=== PATIENT | female | born 1980 | race Caucasian/White ===

== ENCOUNTER 2018-09-24 17:15 | Inpatient (IN) | payer OTHER ==
--- NOTE | 2018-09-24 17:27 | PDOC ---
Rapid Medical Evaluation Chief Complaint: Chest Pain Time Seen by Provider: 09/24/18 17:21 Medical Evaluation: Allergies Allergy/AdvReac Type Severity Reaction Status Date / Time kiwi Allergy Severe "THROAT Verified 04/01/13 16:42 [Kiwi (Actinidia Chinensis)] CLOSES" No Known Drug Allergies Allergy Verified 04/01/13 16:42 09/24/18 17:22 38 year old female chest pain and shortness of breath 2 weeks. + OCP use. send by PCP for evaluation. history of PE, ITP, SLE. currently on Coumadin PE; patient alert ox3 bruising to b/l loower extremities. A: Sob P: labs EKG patient to the ER for further management of care. Discharge Disposition - Diagnosis Pleuritic chest pain - Referrals - Patient Instructions - Post Discharge Activity
--- NOTE | 2018-09-24 17:39 | PDOC ---
History of Present Illness - General Chief Complaint: Shortness of Breath Stated Complaint: CHEST PAIN/SOB Time Seen by Provider: 09/24/18 17:21 - History of Present Illness Initial Comments: 09/24/18 18:45 The patient is a 38 year old female with a history of PE, ITP, Lupus on Warfarin who presents for evaluation of shortness of breath and chest pain. The patient reports a 2 week history of worsening shortness of breath. She states that today she began experiencing sharp chest pain worse with deep inspiration prompting her presentation to the ED for further evaluation. She states that she is occasionally inconsistent with taking her warfarin and reports OCP use as well. She otherwise denies fevers, chills, nausea, vomiting , abdominal pain, or changes with urination or bowel movements. Past History - Past Medical History Allergies/Adverse Reactions: Allergies Allergy/AdvReac Type Severity Reaction Status Date / Time kiwi Allergy Severe "THROAT Verified 09/24/18 17:22 [Kiwi (Actinidia Chinensis)] CLOSES" No Known Drug Allergies Allergy Verified 09/24/18 17:22 Home Medications: Ambulatory Orders Enoxaparin [Lovenox -] 40 mg SQ DAILY 09/17/12 Warfarin Na [Coumadin] 4 mg PO HS 09/18/12 Moxifloxacin HCl [Vigamox] 1 drop OD TID #1 bottle 04/01/13 Anemia: No Asthma: No Cancer: No Cardiac Disorders: No CVA: No COPD: No CHF: No Dementia: No Diabetes: No GI Disorders: No Disorders: No HTN: No Hypercholesterolemia: No Liver Disease: No Seizures: No Thyroid Disease: No Other medical history: ITP, LUPUS. PE - Surgical History Abdominal Surgery: Yes Appendectomy: No Cardiac Surgery: No Cholecystectomy: Yes Lung Surgery: No Neurologic Surgery: No Orthopedic Surgery: No - Immunization History Immunization Up to Date: Yes - Suicide/Smoking/Psychosocial Hx Smoking Status: No Smoking History: Never smoked Have you smoked in the past 12 months: No Hx Alcohol Use: No Drug/Substance Use Hx: No Substance Use Type: None Review of Systems - Review of Systems Comments:: 09/24/18 18:50 Constitutional: No fevers, chills, fatigue, malaise HEENT: No Rhinorrhea, nasal congestion, visual changes Cardiovascular: Chest pain. No syncope, palpitations, lightheadedness Respiratory: SOB. No Cough, Hemoptysis, Gastrointestinal: No Abdominal pain, Nausea, Vomiting, Constipation, Diarrhea, Melena Genitourinary: No Dysuria, Frequency, Urgency, Hesitancy, Hematuria, Flank pain Musculoskeletal: No Myalgia, arthralgia Skin: No rashes, itching, bruising, pallor Neurologic: No Headache, Dizziness, Numbness, Weakness, or Tingling Psychiatric: No Hallucinations. No SI or HI *Physical Exam - Vital Signs Last Vital Signs Temp Pulse Resp BP Pulse Ox 97.9 F 90 18 146/90 96 09/24/18 17:22 09/24/18 17:22 09/24/18 17:22 09/24/18 17:22 09/24/18 17:22 - Physical Exam Comments: 09/24/18 18:53 General Appearance: Nourished. Visibly tachypneic on exam. No Apparent Distress HEENT: No Pharyngeal Erythema, Tonsillar Exudate, Tonsillar Erythema Neck: No Cervical Lymphadenopathy Respiratory/Chest: Lungs Clear, Normal Breath Sounds. No Crackles, Rales, Rhonchi, Wheezing Cardiovascular: Regular Rhythm, Regular Rate. No Murmur, Gallops, Rubs Gastrointestinal/Abdominal: Normal Bowel Sounds, Soft. No Guarding, Rebound, Tenderness Musculoskeletal: No CVA Tenderness Extremity: 1+ pitting edema in the lower extremities bilaterally. Normal Capillary Refill Integumentary: Normal Color, Dry, Warm Neurologic: Fully Oriented, Alert, Normal Mood/Affect, Normal Response, ED Treatment Course - LABORATORY CBC & Chemistry Diagram: 09/24/18 17:30 09/24/18 17:32 Medical Decision Making - Medical Decision Making 09/24/18 18:53 The patient is a 38 year old female with a history of PE, ITP, Lupus on Warfarin who presents for evaluation of shortness of breath and chest pain. Given the patient's history and physical exam, we will obtain a cbc, cmp, coags , troponin, ekg, chest plain film, d-dimer, chest CTA to evaluate further. We will continue to monitor and reassess while here in the ED. 09/24/18 21:57 CBC, cmp, troponin are unremarkable. Coags show a subtheraputic INR. D-dimer is negative. Chest CTA demonstrates pulmonary hypertension without evidence of PE as read by our radiologist. Given the patient's new pulmonary hypertension and new ekg changes, we believe she requires observation admission for further monitoring and management. *DC/Admit/Observation/Transfer Diagnosis at time of Disposition: Pleuritic chest pain, Shortness of breath, Pulmonary hypertension, Abnormal EKG - Discharge Dispostion Condition at time of disposition: Stable Decision to Admit order: Yes - Referrals Referrals: Clinton Parks MD [Primary Care Provider] - - Patient Instructions - Post Discharge Activity
[2018-09-24 17:47] LABS: BASO % 1.2 % (0-2.0); EOS % 2.6 % (0-4.5); HEMATOCRIT 37.3 % (32.4-45.2); HEMOGLOBIN 12.6 GM/dL (10.7-15.3); LYMPH % 27.6 % (8-40); MCH 29.9 pg (25.7-33.7); MCHC 33.8 g/dl (32.0-36.0); MEAN CELL VOLUME 88.4 fl (80-96); MEAN PLT VOLUME 10.6 fl (7.5-11.1); MONO % 9.3 % (3.8-10.2); NEUT % 59.3 % (42.8-82.8); PLATELET COUNT 151 K/MM3 (134-434); RBC 4.22 M/mm3 (3.60-5.2); RDW 14.6 % (11.6-15.6); WHITE BLOOD COUNT 4.4 K/mm3 (4.0-10.0)
[2018-09-24 17:54] LABS: EPI CELLS 10.9 /HPF (0-5/HPF); PH,URINE 6.5 (5.0-8.0); URINE APPEARANCE CLEAR; URINE BILIRUBIN NEGATIVE (NEGATIVE); URINE CASTS 4 /lpf (0-8); URINE COLOR YELLOW; URINE GLUCOSE (UA) NEGATIVE (NEGATIVE); URINE KETONE NEGATIVE (NEGATIVE); URINE LEUK ESTERASE TRACE (NEGATIVE); URINE NITRITE NEGATIVE (NEGATIVE); URINE PROTEIN NEGATIVE (NEGATIVE); URINE RBC 3 /hpf (0-4); URINE WBC 3 /hpf (0-5)
[2018-09-24 18:00] LABS: INR 1.14 (0.83-1.09); PROTHROMBIN TIME (PATIENT) 13.5 SEC (9.7-13.0)
[2018-09-24 18:02] LABS: ACTIVATED PTT 34.4 SECONDS (25.2-36.5)
[2018-09-24 19:05] LABS: ALBUMIN 3.2 g/dl (3.4-5.0); ALK PHOS 94 U/L (45-117); ANION GAP 8 MMOL/L (8-16); BILIRUBIN,TOTAL 0.4 mg/dL (0.2-1); BLOOD UREA NITROGEN 11 mg/dL (7-18); CALCIUM 8.8 mg/dL (8.5-10.1); CHLORIDE 108 mmol/L (98-107); CO2 24 mmol/L (21-32); CREATININE 0.8 mg/dL (0.55-1.3); GLUCOSE,RANDOM 86 mg/dL (74-106); POTASSIUM 3.9 mmol/L (3.5-5.1); SGOT/AST 24 U/L (15-37); SGPT/ALT 26 U/L (13-61); SODIUM 140 mmol/L (136-145); TOT PROT 8.4 g/dl (6.4-8.2)
[2018-09-24] MEDS ORDERED: SODIUM CHLORIDE 1,000 ML IV STA (19:30)
[2018-09-24] MEDS ORDERED: ALBUTEROL SO4 2.5/IPRATROPIUM 0.5 INH SOL 3 ML VIAL.NEB. NEB ONE (19:32)
--- NOTE | 2018-09-24 19:46 | PDOC ---
Documentation entered by Abhinav Tipton SCRIBE, acting as scribe for Keeley Garza DO. Keeley Garza DO: This documentation has been prepared by the Danuta velazquez Nirvannie, SCRIBE, under my direction and personally reviewed by me in its entirety. I confirm that the documentation accurately reflects all work, treatment, procedures, and medical decision making performed by me. Attending Attestation - Resident Resident Name: Kevin Altamirano - ED Attending Attestation I have performed the following: I have examined & evaluated the patient, The case was reviewed & discussed with the resident, I agree w/resident's findings & plan - HPI HPI: 09/24/18 19:55 The patient is a 38 year old female, with a significant past medical history of PE, ITP, Lupus (on Warfarin, occasional compliance), who presents to the emergency department with, 2 weeks of worsening shortness of breath and new onset sharp, pleuritic chest pain. She denies recent fevers, chills, headache or dizziness. She denies recent nausea, vomit, diarrhea or constipation. She denies recent dysuria, frequency, urgency or hematuria. Allergies: Michwi Primary Care Physician: Dr. Parks - Physicial Exam PE: 09/24/18 19:57 Constitutional: Awake, alert, oriented. No acute distress. Head: Normocephalic. Atraumatic Eyes: PERRL. EOMI. Conjunctivae are not pale. ENT: Mucous membranes are moist and intact. Posterior pharynx without exudates or erythema. Uvula midline. Neck: Supple. Full ROM. No lymphadenopathy. Cardiovascular: Regular rate. Regular rhythm. S1, S2 regular. Distal pulses are 2+ and symmetric. Pulmonary/Chest: +Desaturating to 92% when speaking, 96-97% at rest. Minimally diminished at bases. No evidence of respiratory distress. No wheezing, rales or rhonchi. Abdominal: Soft and non-distended. There is no tenderness. No rebound, guarding or rigidity. No organomegaly. No palpable masses. Good bowel sounds. Back: No CVA tenderness. Musculoskeletal: No edema. No cyanosis. No clubbing. Full range of motion in all extremities. No calf tenderness. Radial/pedal pulses are intact and 2+ bilaterally Skin: Skin is warm and dry. No petechiae. No purpura. Neurological: Alert and oriented to person, place, and time. Cranial nerves II -XII are grossly intact. Normal speech. Strength is grossly symmetric. No sensory deficits. Psychiatric: Good eye contact. Normal interaction, affect and behavior. - Medical Decision Making 09/24/18 19:38 I, Dr. Keeley Garza, DO, attest that this document has been prepared under my direction and personally reviewed by me in its entirety. I further attest, that it accurately reflects all work, treatment, procedures and medical decision -making performed by me. 09/24/18 19:38 a/p: 38yo female with hx of lupus and PE/DVT presents for increasing sob all week -INR checked a month ago was 2.2 -started amoxicillin for URI - cough/sob on friday -feeling more acutely sob today -concern for pe vs pna -will send labs, xray, ct pe study -will monitor and reassess 09/24/18 19:45 new ekg changes, will perform bedside echo 09/24/18 20:27 dimer negative pt to CT 09/24/18 21:36 no pe pulm htn on ct abnl ekg trop negative will place in obs for repeat trops and ekg, echo tomorrow subtherapeutic INR 09/24/18 22:44 resident discussed the case with MAGGIE who accepts pt to service Heart Score/ECG Review - ECG Intrepretation Comment:: 09/24/18 19:43 sinus at 87, nl axis, nl interval, t wave inversions inferior leads, biphasic t waves anterior leads-which are new from prior ekg
[2018-09-24] MEDS ORDERED: ENOXAPARIN NA (PORCINE) 80 MG/0.8 ML DISP.SYRIN SQ ONE (22:54)
--- NOTE | 2018-09-24 22:54 | HP ---
CHIEF COMPLAINT: SOB/CP PCP: Clinton Parks MD HISTORY OF PRESENT ILLNESS: Patient is a 38 y/o F w/ PMHx PE (on warfarin, takes inconsistently), ITP, lupus , p/w worsening SOB x 2 weeks and sharp pleuritic chest pain starting today. Additionally complains of purple discoloration in her lips which has since resolved and mottling in her legs which has not resolved. ROS otherwise negative. Afebrile with stable vitals on presentation. CBC, CMP wnl, UA and hCG negative, initial troponin negative, d-dimer negative, INR subtherapeutic to 1.14. EKG showed interval development of t-wave inversions in leads III, aVF, v1 , v2, v3. Chest CTA was negative for PE but did newly demonstrate pulmonary HTN. She was given duonebs and 1L NS bolus in the ED. Continues to c/o SOB at time of encounter. Recent Travel: PAST MEDICAL HISTORY: As per HPI PAST SURGICAL HISTORY: CCY, Social History: Smoking: no Alcohol: socially Drugs: no Family History: Allergies kiwi [Kiwi (Actinidia Chinensis)] Allergy (Severe, Verified 09/24/18 17:22) "THROAT CLOSES" No Known Drug Allergies Allergy (Verified 09/24/18 17:22) HOME MEDICATIONS: Home Medications Medication Instructions Recorded Enoxaparin [Lovenox -] 40 mg SQ DAILY 09/17/12 Warfarin Na [Coumadin] 4 mg PO HS 09/18/12 Moxifloxacin HCl [Vigamox] 1 drop OD TID #1 bottle 04/01/13 REVIEW OF SYSTEMS As per HPI PHYSICAL EXAMINATION Vital Signs - 24 hr 09/24/18 17:22 Temperature 97.9 F Pulse Rate 90 Respiratory 18 Rate Blood Pressure 146/90 O2 Sat by Pulse 96 Oximetry (%) GENERAL: A&Ox3, NAD HEENT: NC/AT, PERRLA, EOMI, MMM NECK: Trachea midline, full range of motion, supple. LUNGS: CTA b/l HEART: RRR no m/r/g ABDOMEN: +bs, soft, NT, ND EXTREMITIES: 2+ pulses, warm, well-perfused, no edema. 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 SKIN: Warm, dry, normal turgor, no rashes or lesions noted Laboratory Results - last 24 hr 09/24/18 09/24/18 09/24/18 17:22 17:30 17:30 WBC 4.4 RBC 4.22 Hgb 12.6 Hct 37.3 MCV 88.4 MCH 29.9 MCHC 33.8 RDW 14.6 Plt Count 151 MPV 10.6 Absolute Neuts (auto) 2.6 Neutrophils % 59.3 Lymphocytes % 27.6 Monocytes % 9.3 Eosinophils % 2.6 Basophils % 1.2 Nucleated RBC % 0 PT with INR 13.50 H INR 1.14 H PTT (Actin FS) 34.4 D-Dimer 308 Sodium Potassium Chloride Carbon Dioxide Anion Gap BUN Creatinine Creat Clearance w eGFR Random Glucose Calcium Total Bilirubin AST ALT Alkaline Phosphatase Troponin I Total Protein Albumin Serum , Qual Urine Color Urine Appearance Urine pH Ur Specific [place] Urine Protein Urine Glucose (UA) Urine Ketones Urine Blood Urine Nitrite Urine Bilirubin Urine Urobilinogen Ur Leukocyte Esterase Urine WBC (Auto) Urine RBC (Auto) Urine Casts (Auto) U Epithel Cells (Auto) Urine Bacteria (Auto) 09/24/18 09/24/18 09/24/18 17:32 17:32 17:38 WBC RBC Hgb Hct MCV MCH MCHC RDW Plt Count MPV Absolute Neuts (auto) Neutrophils % Lymphocytes % Monocytes % Eosinophils % Basophils % Nucleated RBC % PT with INR INR PTT (Actin FS) D-Dimer Sodium 140 Potassium 3.9 Chloride 108 H Carbon Dioxide 24 Anion Gap 8 BUN 11 Creatinine 0.8 Creat Clearance w eGFR 80.71 Random Glucose 86 Calcium 8.8 Total Bilirubin 0.4 AST 24 ALT 26 Alkaline Phosphatase 94 Troponin I < 0.02 Total Protein 8.4 H Albumin 3.2 L Serum , Qual Negative Urine Color Yellow Urine Appearance Clear Urine pH 6.5 Ur Specific [place] 1.018 Urine Protein Negative Urine Glucose (UA) Negative Urine Ketones Negative Urine Blood Negative Urine Nitrite Negative Urine Bilirubin Negative Urine Urobilinogen 1.0 Ur Leukocyte Esterase Trace Urine WBC (Auto) 3 Urine RBC (Auto) 3 Urine Casts (Auto) 4 U Epithel Cells (Auto) 10.9 Urine Bacteria (Auto) 65.0 ASSESSMENT/PLAN: 38 y/o F w/ PMHx PE (on warfarin, takes inconsistently), ITP, lupus, p/w worsening SOB x 2 weeks and sharp pleuritic chest pain starting today #A: -CTA negative for PE, new development of pulmonary HTN -new twi on EKG -subtherapeutic INR -initial troponin negative #P: -cardiology consulted -pulmonology consulted -duonebs PRN -restarted warfarin w/ Lovenox bridge -echocardiogram -trend troponin -repeat EKG -no IVF -f/u BMP, Mg, Phos -trend INR -regular diet -warfarin/therapeutic Lovenox bridge for DVT PPx -full code -observe on telemetry Visit type - Emergency Visit Emergency Visit: Yes ED Registration Date: 09/24/18 Care time: The patient presented to the Emergency Department on the above date and was hospitalized for further evaluation of their emergent condition. - New Patient This patient is new to me today: Yes Date on this admission: 09/24/18 - Critical Care Critical Care patient: No
[2018-09-24] MEDS: ENOXAPARIN NA (PORCINE) 80 MG/0.8 ML DISP.SYRIN SQ SCH (22:55)
[2018-09-24] MEDS ORDERED: WARFARIN NA 2 MG TABLET (UD) PO SCH (23:00)
--- NOTE | 2018-09-25 00:17 | PN ---
Teaching Attending Note Name of Resident: Kevin Lopez ATTENDING PHYSICIAN STATEMENT I saw and evaluated the patient. I reviewed the resident's note and discussed the case with the resident. I agree with the resident's findings and plan as documented. SUBJECTIVE: Patient is a 38 year old woman with PMH of PE, ITP, SLE on Warfarin who presents for evaluation of shortness of breath and chest pain. The patient reports a 2 week history of worsening shortness of breath. She states that today she began experiencing sharp chest pain worse with deep inspiration prompting her presentation to the ED for further evaluation. She states that she is occasionally inconsistent with taking her warfarin and reports Oral contraceptive pill use as well. She otherwise denies fevers, chills, nausea, vomiting, abdominal pain, or changes with urination or bowel movements. OBJECTIVE: Alert Vital Signs Period Temp Pulse Resp BP Sys/Fenton Pulse Ox Last 24 Hr 97.9 F 90 18 146/90 96 HEENT: No Jaundice, eye redness or discharge, PERRLA, EOMI. Normocephalic, atraumatic. External ears are normal and hearing is grossly intact. No nasal discharge. Neck: Supple, nontender. No palpable adenopathy or thyromegaly. No JVD Chest: Good effort. Clear to auscultation and percussion. Heart: Regular. No S3, rub or murmur Abdomen: Not distended, soft, nontender and no HSM. No rebound or guarding. Normal bowel sounds. Ext: Peripheral pulses intact. No leg edema. Skin: Warm and dry. No petechiae, rash or ecchymosis. Neuro: Alert. Oriented x3. CN 2-12 grossly intact. Sensation grossly intact in all four extremities and DTR are symmetric. Psych: Appropriate mood and affect. Good insight. Current Medications Generic Name Dose Route Start Last Admin Trade Name Freq PRN Reason Stop Dose Admin Albuterol/Ipratropium 1 amp 09/24/18 22:41 Duoneb - NEB Q4H PRN SHORTNESS OF BREATH Enoxaparin Sodium 75 mg 09/24/18 22:45 09/24/18 22:55 Lovenox - SQ 75 mg BID [facility] Administration Warfarin Sodium 4 mg 09/24/18 23:00 Coumadin - PO DAILY@1800 [facility] Home Medications Medication Instructions Recorded Enoxaparin [Lovenox -] 40 mg SQ DAILY 09/17/12 Warfarin Na [Coumadin] 4 mg PO HS 09/18/12 Moxifloxacin HCl [Vigamox] 1 drop OD TID #1 bottle 04/01/13 Abnormal Lab Results 09/24/18 09/24/18 17:30 17:32 PT with INR 13.50 H INR 1.14 H Chloride 108 H Total Protein 8.4 H Albumin 3.2 L ASSESSMENT AND PLAN: 1. Chest pain - Pain is atypical, but she has Twave inversion in inferior leads. Initial troponin is negative. CORDOVA may be due to pulmonary hypertension. Will admit to telemetry to rule out ACS and get ECHO, fasting lipids. No PE on CTA and no acute infiltrates, but pulmonary hypertension noted. Was getting outpatient amoxicillin, but there is no indication for antibiotics at this time. In view of INR of 1.14 on coumadin, will bridge with Lovenox for now and consult case management to find out if her health insurance will cover a DOAC. Monitor BP closely - may have undiagnosed hypertension. Consult cardiology and Pulmonary. 2. Hypoalbuminemia - Possibly due to combined effects of malnutrition and inflammation associated with comorbid chronic conditions. Will ensure adequate dietary protein intake and also consult occupational therapy assistant. 3. Obesity Counseled on the risks associated with obesity. Will provide patient all the necessary assistance, counseling and positive reinforcement to facilitate weight loss. Consult occupational therapy assistant. 4. DVT prophylaxis - On coumadin and bridging lovenox for remote PE 5. Advance directives - Full code
[2018-09-25] MEDS ORDERED: WARFARIN NA 1 MG TABLET (FP) ONE (01:11)
[2018-09-25 06:19] LABS: BASO % 2.4 % (0-2.0); EOS % 7.2 % (0-4.5); HEMATOCRIT 34.3 % (32.4-45.2); HEMOGLOBIN 11.5 GM/dL (10.7-15.3); LYMPH % 40.1 % (8-40); MCH 29.2 pg (25.7-33.7); MCHC 33.4 g/dl (32.0-36.0); MEAN CELL VOLUME 87.4 fl (80-96); MEAN PLT VOLUME 10.6 fl (7.5-11.1); NEUT % 34.3 % (42.8-82.8); PLATELET COUNT 140 K/MM3 (134-434); RBC 3.93 M/mm3 (3.60-5.2); RDW 14.5 % (11.6-15.6); WHITE BLOOD COUNT 2.6 K/mm3 (4.0-10.0)
[2018-09-25 06:41] LABS: INR 1.18 (0.83-1.09); PROTHROMBIN TIME (PATIENT) 13.9 SEC (9.7-13.0)
[2018-09-25 06:45] LABS: ANION GAP 6 MMOL/L (8-16); BLOOD UREA NITROGEN 14 mg/dL (7-18); CALCIUM 8.1 mg/dL (8.5-10.1); CHLORIDE 109 mmol/L (98-107); CO2 24 mmol/L (21-32); CREATININE 0.7 mg/dL (0.55-1.3); GLUCOSE,RANDOM 84 mg/dL (74-106); MAGNESIUM 1.9 mg/dL (1.8-2.4); PHOSPHOROUS 5.5 mg/dL (2.5-4.9); POTASSIUM 3.7 mmol/L (3.5-5.1); SODIUM 139 mmol/L (136-145)
[2018-09-25] MEDS: ENOXAPARIN NA (PORCINE) 80 MG/0.8 ML DISP.SYRIN SQ SCH ×2 (10:50→22:40)
--- NOTE | 2018-09-25 11:25 | EKG ---
Test Reason : Blood Pressure : / mmHG Vent. Rate : 087 BPM Atrial Rate : 087 BPM P-R Int : 140 ms QRS Dur : 070 ms QT Int : 364 ms P-R-T Axes : 033 088 -10 degrees QTc Int : 438 ms NORMAL SINUS RHYTHM ABNORMAL ECG WHEN COMPARED WITH ECG OF 14-APR-2011 12:11, ST NOW DEPRESSED IN ANTERIOR LEADS T WAVE INVERSION NOW EVIDENT IN INFERIOR LEADS T WAVE INVERSION MORE EVIDENT IN ANTERIOR LEADS Confirmed by MATTHIAS BRAUN MD ([id number]) on 09/25/2018 11:25:02 AM Referred By: Confirmed By:MATTHIAS BRAUN MD
--- NOTE | 2018-09-25 12:02 | CON.CARD ---
Consult Consult Specialty:: Cardiology Reason for Consultation:: sob - History of Present Illness History of Present Illness: The patient is a 38 year old female with a history of PE, ITP, Lupus on Warfarin who presents for evaluation of shortness of breath and chest pain. The patient reports a 2 week history of worsening shortness of breath. She states that today she began experiencing sharp chest pain worse with deep inspiration prompting her presentation to the ED for further evaluation. She states that she is occasionally inconsistent with taking her warfarin and reports OCP use as well. She otherwise denies fevers, chills, nausea, vomiting , abdominal pain, or changes with urination or bowel movements. - History Source History Provided By: Patient, Medical Record - Past Medical History ...LMP: 08/27/12 - Alcohol/Substance Use Hx Alcohol Use: No - Smoking History Smoking history: Never smoked Have you smoked in the past 12 months: No Home Medications - Allergies Allergies/Adverse Reactions: Allergies Allergy/AdvReac Type Severity Reaction Status Date / Time kiwi Allergy Severe "THROAT Verified 09/24/18 17:22 [Kiwi (Actinidia Chinensis)] CLOSES" No Known Drug Allergies Allergy Verified 09/24/18 17:22 - Home Medications Home Medications: Ambulatory Orders Enoxaparin [Lovenox -] 40 mg SQ DAILY 09/17/12 Warfarin Na [Coumadin] 4 mg PO HS 09/18/12 Moxifloxacin HCl [Vigamox] 1 drop OD TID #1 bottle 04/01/13 Warfarin Na [Coumadin] 5 mg PO HS 09/25/18 Review of Systems - Review of Systems Constitutional: reports: No Symptoms Eyes: reports: No Symptoms HENT: reports: No Symptoms Neck: reports: No Symptoms Cardiovascular: reports: Chest Pain, Shortness of Breath Respiratory: reports: SOB Gastrointestinal: reports: No Symptoms Genitourinary: reports: No Symptoms Breasts: reports: No Symptoms Reported Musculoskeletal: reports: No Symptoms Integumentary: reports: No Symptoms Neurological: reports: No Symptoms Endocrine: reports: No Symptoms Hematology/Lymphatic: reports: No Symptoms Psychiatric: reports: No Symptoms Vital Signs: Vital Signs Temperature 97.9 F 09/25/18 06:42 Pulse Rate 75 09/25/18 06:42 Respiratory Rate 17 09/25/18 06:42 Blood Pressure 121/83 09/25/18 06:42 O2 Sat by Pulse Oximetry (%) 96 09/25/18 06:42 Constitutional: Yes: Well Nourished, No Distress, Calm Eyes: Yes: WNL, Conjunctiva Clear, EOM Intact HENT: Yes: WNL, Atraumatic, Normocephalic Neck: Yes: WNL, Supple, Trachea Midline Respiratory: Yes: WNL, Regular, CTA Bilaterally Gastrointestinal: Yes: WNL, Normal Bowel Sounds Renal/: Yes: WNL Cardiovascular: Yes: WNL, Regular Rate and Rhythm Musculoskeletal: Yes: WNL Extremities: Yes: WNL Integumentary: Yes: WNL Neurological: Yes: WNL, Alert, Oriented ...Motor Strength: WNL Psychiatric: Yes: WNL, Alert, Oriented - Other Data Labs, Other Data: CBC, BMP 09/25/18 05:30 09/25/18 05:30 INR, PTT INR 1.18 (0.83-1.09) H 09/25/18 05:30 Troponin, BNP 09/24/18 09/24/18 17:32 22:35 Troponin I < 0.02 0.02 Troponin, BNP 09/24/18 09/24/18 17:32 22:35 Troponin I < 0.02 0.02 Laboratory Tests 09/24/18 09/24/18 09/24/18 17:22 17:30 17:30 WBC 4.4 RBC 4.22 Hgb 12.6 Hct 37.3 MCV 88.4 MCH 29.9 MCHC 33.8 RDW 14.6 Plt Count 151 MPV 10.6 Absolute Neuts (auto) 2.6 Neutrophils % 59.3 Lymphocytes % 27.6 Monocytes % 9.3 Eosinophils % 2.6 Basophils % 1.2 Nucleated RBC % 0 PT with INR 13.50 H INR 1.14 H PTT (Actin FS) 34.4 D-Dimer 308 Sodium Potassium Chloride Carbon Dioxide Anion Gap BUN Creatinine Creat Clearance w eGFR Random Glucose Calcium Phosphorus Magnesium Total Bilirubin AST ALT Alkaline Phosphatase Troponin I Total Protein Albumin Serum , Qual Urine Color Urine Appearance Urine pH Ur Specific [place] Urine Protein Urine Glucose (UA) Urine Ketones Urine Blood Urine Nitrite Urine Bilirubin Urine Urobilinogen Ur Leukocyte Esterase Urine WBC (Auto) Urine RBC (Auto) Urine Casts (Auto) U Epithel Cells (Auto) Urine Bacteria (Auto) 0409/24/18 09/24/18 17:32 17:32 17:38 WBC RBC Hgb Hct MCV MCH MCHC RDW Plt Count MPV Absolute Neuts (auto) Neutrophils % Lymphocytes % Monocytes % Eosinophils % Basophils % Nucleated RBC % PT with INR INR PTT (Actin FS) D-Dimer Sodium 140 Potassium 3.9 Chloride 108 H Carbon Dioxide 24 Anion Gap 8 BUN 11 Creatinine 0.8 Creat Clearance w eGFR 80.71 Random Glucose 86 Calcium 8.8 Phosphorus Magnesium Total Bilirubin 0.4 AST 24 ALT 26 Alkaline Phosphatase 94 Troponin I < 0.02 Total Protein 8.4 H Albumin 3.2 L Serum , Qual Negative Urine Color Yellow Urine Appearance Clear Urine pH 6.5 Ur Specific [place] 1.018 Urine Protein Negative Urine Glucose (UA) Negative Urine Ketones Negative Urine Blood Negative Urine Nitrite Negative Urine Bilirubin Negative Urine Urobilinogen 1.0 Ur Leukocyte Esterase Trace Urine WBC (Auto) 3 Urine RBC (Auto) 3 Urine Casts (Auto) 4 U Epithel Cells (Auto) 10.9 Urine Bacteria (Auto) 65.0 09/24/18 09/25/18 09/25/18 22:35 05:30 05:30 WBC 2.6 L RBC 3.93 Hgb 11.5 Hct 34.3 MCV 87.4 MCH 29.2 MCHC 33.4 RDW 14.5 Plt Count 140 MPV 10.6 Absolute Neuts (auto) 0.9 L Neutrophils % 34.3 L D Lymphocytes % 40.1 H D Monocytes % 16.0 H Eosinophils % 7.2 H D Basophils % 2.4 H Nucleated RBC % 0 PT with INR 13.90 H INR 1.18 H PTT (Actin FS) D-Dimer Sodium Potassium Chloride Carbon Dioxide Anion Gap BUN Creatinine Creat Clearance w eGFR Random Glucose Calcium Phosphorus Magnesium Total Bilirubin AST ALT Alkaline Phosphatase Troponin I 0.02 Total Protein Albumin Serum , Qual Urine Color Urine Appearance Urine pH Ur Specific [place] Urine Protein Urine Glucose (UA) Urine Ketones Urine Blood Urine Nitrite Urine Bilirubin Urine Urobilinogen Ur Leukocyte Esterase Urine WBC (Auto) Urine RBC (Auto) Urine Casts (Auto) U Epithel Cells (Auto) Urine Bacteria (Auto) 09/25/18 05:30 WBC RBC Hgb Hct MCV MCH MCHC RDW Plt Count MPV Absolute Neuts (auto) Neutrophils % Lymphocytes % Monocytes % Eosinophils % Basophils % Nucleated RBC % PT with INR INR PTT (Actin FS) D-Dimer Sodium 139 Potassium 3.7 Chloride 109 H Carbon Dioxide 24 Anion Gap 6 L BUN 14 Creatinine 0.7 Creat Clearance w eGFR 94.16 Random Glucose 84 Calcium 8.1 L Phosphorus 5.5 H Magnesium 1.9 Total Bilirubin AST ALT Alkaline Phosphatase Troponin I Total Protein Albumin Serum , Qual Urine Color Urine Appearance Urine pH Ur Specific [place] Urine Protein Urine Glucose (UA) Urine Ketones Urine Blood Urine Nitrite Urine Bilirubin Urine Urobilinogen Ur Leukocyte Esterase Urine WBC (Auto) Urine RBC (Auto) Urine Casts (Auto) U Epithel Cells (Auto) Urine Bacteria (Auto) Imaging - Results Chest X-ray: Image Reviewed (no i/e) Cat Scan: Report Reviewed (no pe) EKG: Image Reviewed (sr ant and iw t wave inversion new) Problem List - Problems (1) Abnormal EKG Code(s): R94.31 - ABNORMAL ELECTROCARDIOGRAM [ECG] [EKG] (2) Pleuritic chest pain Code(s): R07.81 - PLEURODYNIA (3) Pulmonary hypertension Code(s): I27.20 - PULMONARY HYPERTENSION, UNSPECIFIED (4) Shortness of breath Code(s): R06.02 - SHORTNESS OF BREATH Assessment/Plan 38 year old female with a history of PE, ITP, Lupus noncompliant with Warfarin who presents for evaluation of shortness of breath and chest pain and new ekg changes. TNIs neg CTA neg PE ECHO showed dil RV reduced RV ef Plan; Bridge LMWH until INR therapeutic. Patient to be transferred to [facility] for w/u of pulmonary HTN/ RHC d/w PA at [facility] accepting dr. Damon
--- NOTE | 2018-09-25 12:28 | ECHO ---
Name: PAPA SIN Exam:Adult Echocardiogram Study Date: 09/25/2018 08:21 AM Age: 38 yrs Reason For Study: LV Function Height: 61 in Weight: 165 lb BSA: 1.7 m2 MMode/2D Measurements & Calculations IVSd: 0.71 cm Ao root diam: 2.5 cm LVIDd: 3.6 cm LA dimension: 3.3 cm LVIDs: 2.5 cm LVPWd: 0.71 cm EDV(Teich): 56.2 ml LVOT diam: 2.0 cm ESV(Teich): 23.0 ml Doppler Measurements & Calculations MV E max bertin: 40.5 cm/sec Ao V2 max: 121.2 cm/sec MV A max bertin: 62.7 cm/sec Ao max P.9 mmHg MV E/A: 0.65 Ao V2 mean: 95.5 cm/sec MV dec time: 0.19 sec Ao mean P.8 mmHg Ao V2 VTI: 25.2 cm [place](I,D): 1.5 cm2 [place](V,D): 1.7 cm2 LV V1 max P.8 mmHg MR max bertin: 445.8 cm/sec LV V1 mean P.1 mmHg MR max P.4 mmHg LV V1 max: 66.6 cm/sec LV V1 mean: 49.7 cm/sec LV V1 VTI: 12.8 cm SV(LVOT): 38.5 ml TR max bertin: 335.2 cm/sec TR max P.6 mmHg PA V2 max: 78.4 cm/sec PI end-d bertin: 223.3 cm/sec PA max P.5 mmHg Med Peak E' Bertin: 3.4 cm/sec Med E/e': 11.9 Lat Peak E' Bertin: 9.0 cm/sec Lat E/e': 4.5 Left Ventricle Left ventricular systolic function is normal. Ejection Fraction = 55-60%. The transmitral spectral Do ppler flow pattern is suggestive of impaired LV relaxation. Right Ventricle The right ventricle is mildly dilated. The right ventricular systolic function is mildly reduced. Atria Normal left and right atrial size and function. Mitral Valve The mitral valve is normal in structure and function. There is no mitral valve stenosis. There is mil d mitral regurgitation. Tricuspid Valve The tricuspid valve is normal in structure and function. There is mild tricuspid regurgitation. Right ventricular systolic pressure is elevated at 50-60mmHg. Aortic Valve The aortic valve opens well. No hemodynamically significant valvular aortic stenosis. Pulmonic Valve The pulmonic valve is not well seen, but is grossly normal. There is no pulmonic valvular stenosis. Great Vessels The aortic root is normal size. Pericardium/Pleura There is no pericardial effusion. Interpretation Summary Left ventricular systolic function is normal. Ejection Fraction = 55-60%. The transmitral spectral Doppler flow pattern is suggestive of impaired LV relaxation. The right ventricle is mildly dilated. The right ventricular systolic function is mildly reduced. There is mild mitral regurgitation. There is mild tricuspid regurgitation. Right ventricular systolic pressure is elevated at 50-60mmHg. There is no pericardial effusion. MD Holman *Khoa 09/25/2018 12:27 PM
[2018-09-25] MEDS ORDERED: AZITHROMYCIN IVPB 500 MG/250 ML BAG IVPB ONE (14:33)
[2018-09-25] MEDS: AMOXICILLIN 500 MG CAPSULE (FP) PO SCH ×2 (14:48→22:40)
--- NOTE | 2018-09-25 15:22 | DS ---
Physical Exam: SUBJECTIVE: Patient seen and examined at bedside this morning. She currently denies chest pain, palpitations, abdominal pain, nausea, vomiting. OBJECTIVE: Vital Signs Period Temp Pulse Resp BP Sys/Fenton Pulse Ox Last 24 Hr 97.9 F-97.9 F 75-90 16-18 121-146/83-98 96-96 PHYSICAL EXAM GENERAL: The patient is awake, alert, and fully oriented, in no acute distress. HEAD: Normocephalic, atraumatic. EYES: PERRL, extraocular movements intact, sclera anicteric, conjunctiva clear. ENT: Oropharynx clear, without erythema or exudates. Moist mucous membranes. NECK: Trachea midline, full range of motion. Supple without lymphadenopathy. LUNGS: Breath sounds equal, clear to auscultation bilaterally, no wheezes, no crackles. No accessory muscle use. HEART: Regular rate and rhythm, S1, S2 without murmur, rub or gallop. ABDOMEN: Soft, nondistended, nontender to light and deep palpation x4 quadrants , no rebound tenderness, no guarding. Normoactive bowel sounds x4 quadrants. no hepatosplenomegaly, no masses. EXTREMITIES: 2+ radial, dorsalis pedis pulses bilaterally. Warm, well-perfused. No lower extremity edema bilaterally. NEUROLOGICAL: Cranial nerves II through XII grossly intact. Normal speech. No gross focal deficits. PSYCH: Normal mood, normal affect upon my encounter. SKIN: Warm, dry. LABS Laboratory Results - last 24 hr 09/24/18 09/24/18 09/24/18 17:22 17:30 17:30 WBC 4.4 RBC 4.22 Hgb 12.6 Hct 37.3 MCV 88.4 MCH 29.9 MCHC 33.8 RDW 14.6 Plt Count 151 MPV 10.6 Absolute Neuts (auto) 2.6 Neutrophils % 59.3 Lymphocytes % 27.6 Monocytes % 9.3 Eosinophils % 2.6 Basophils % 1.2 Nucleated RBC % 0 PT with INR 13.50 H INR 1.14 H PTT (Actin FS) 34.4 D-Dimer 308 Sodium Potassium Chloride Carbon Dioxide Anion Gap BUN Creatinine Creat Clearance w eGFR Random Glucose Calcium Phosphorus Magnesium Total Bilirubin AST ALT Alkaline Phosphatase Troponin I Total Protein Albumin Serum , Qual Urine Color Urine Appearance Urine pH Ur Specific [place] Urine Protein Urine Glucose (UA) Urine Ketones Urine Blood Urine Nitrite Urine Bilirubin Urine Urobilinogen Ur Leukocyte Esterase Urine WBC (Auto) Urine RBC (Auto) Urine Casts (Auto) U Epithel Cells (Auto) Urine Bacteria (Auto) 09/24/18 09/24/18 09/24/18 17:32 17:32 17:38 WBC RBC Hgb Hct MCV MCH MCHC RDW Plt Count MPV Absolute Neuts (auto) Neutrophils % Lymphocytes % Monocytes % Eosinophils % Basophils % Nucleated RBC % PT with INR INR PTT (Actin FS) D-Dimer Sodium 140 Potassium 3.9 Chloride 108 H Carbon Dioxide 24 Anion Gap 8 BUN 11 Creatinine 0.8 Creat Clearance w eGFR 80.71 Random Glucose 86 Calcium 8.8 Phosphorus Magnesium Total Bilirubin 0.4 AST 24 ALT 26 Alkaline Phosphatase 94 Troponin I < 0.02 Total Protein 8.4 H Albumin 3.2 L Serum , Qual Negative Urine Color Yellow Urine Appearance Clear Urine pH 6.5 Ur Specific [place] 1.018 Urine Protein Negative Urine Glucose (UA) Negative Urine Ketones Negative Urine Blood Negative Urine Nitrite Negative Urine Bilirubin Negative Urine Urobilinogen 1.0 Ur Leukocyte Esterase Trace Urine WBC (Auto) 3 Urine RBC (Auto) 3 Urine Casts (Auto) 4 U Epithel Cells (Auto) 10.9 Urine Bacteria (Auto) 65.0 09/24/18 09/25/18 09/25/18 22:35 05:30 05:30 WBC 2.6 L RBC 3.93 Hgb 11.5 Hct 34.3 MCV 87.4 MCH 29.2 MCHC 33.4 RDW 14.5 Plt Count 140 MPV 10.6 Absolute Neuts (auto) 0.9 L Neutrophils % 34.3 L D Lymphocytes % 40.1 H D Monocytes % 16.0 H Eosinophils % 7.2 H D Basophils % 2.4 H Nucleated RBC % 0 PT with INR 13.90 H INR 1.18 H PTT (Actin FS) D-Dimer Sodium Potassium Chloride Carbon Dioxide Anion Gap BUN Creatinine Creat Clearance w eGFR Random Glucose Calcium Phosphorus Magnesium Total Bilirubin AST ALT Alkaline Phosphatase Troponin I 0.02 Total Protein Albumin Serum , Qual Urine Color Urine Appearance Urine pH Ur Specific [place] Urine Protein Urine Glucose (UA) Urine Ketones Urine Blood Urine Nitrite Urine Bilirubin Urine Urobilinogen Ur Leukocyte Esterase Urine WBC (Auto) Urine RBC (Auto) Urine Casts (Auto) U Epithel Cells (Auto) Urine Bacteria (Auto) 09/25/18 05:30 WBC RBC Hgb Hct MCV MCH MCHC RDW Plt Count MPV Absolute Neuts (auto) Neutrophils % Lymphocytes % Monocytes % Eosinophils % Basophils % Nucleated RBC % PT with INR INR PTT (Actin FS) D-Dimer Sodium 139 Potassium 3.7 Chloride 109 H Carbon Dioxide 24 Anion Gap 6 L BUN 14 Creatinine 0.7 Creat Clearance w eGFR 94.16 Random Glucose 84 Calcium 8.1 L Phosphorus 5.5 H Magnesium 1.9 Total Bilirubin AST ALT Alkaline Phosphatase Troponin I Total Protein Albumin Serum , Qual Urine Color Urine Appearance Urine pH Ur Specific [place] Urine Protein Urine Glucose (UA) Urine Ketones Urine Blood Urine Nitrite Urine Bilirubin Urine Urobilinogen Ur Leukocyte Esterase Urine WBC (Auto) Urine RBC (Auto) Urine Casts (Auto) U Epithel Cells (Auto) Urine Bacteria (Auto) HOSPITAL COURSE: Date of Admission:09/24/18 Date of Discharge: 09/25/18 Patient is a 38 year old female with history of pulmonary embolism, ITP, SLE presented with complaint of chest pain and associated shortness of breath. EKG on admission showed normal sinus rhythm at [address]-T wave abnormalities. Troponin 0.02 x2. Cardiac ECHO showed EF 55- 60%, with normal LV systolic function with mild LV relaxation. RV mildly dilated; with mildly reduced RV systolic function. RV systolic pressure elevated to 50- 60mmHg. CTA was negative for pulmonary embolism; findings were suggestive of pulmonary hypertension. Patient endorses occasional noncompliance with her Warfarin dose. INR upon admission was 1.14. Patient was initiated on Lovenox bridging, while continuing her Coumadin. Patient was evaluated by cardiology who discussed transfer to [facility]. Transfer arranged for patient to [facility] for further evaluation of pulmonary hypertension and higher level of care. Minutes to complete discharge: 35 Discharge Summary Reason For Visit: SHORTNESS OF BREATH,PLEURODYNIA, Current Active Problems Abnormal EKG (Acute) Pleuritic chest pain (Acute) Pulmonary hypertension (Acute) Shortness of breath (Acute) Condition: Stable - Instructions Diet, Activity, Other Instructions: You were admitted to the hospital with chest pain. Your echocardiogram was noted to have elevated pressure within the blood vessels of the lungs (pulmonary hypertension). You were evaluated by the pollution control chemist; who is transferring you to [facility] for frther workup and higher level of care. Continue taking your home medications as directed. Further, follow the medication and follow-up recommendations of the physicians at [facility]. Follow up with your primary care physician within two- three days after discharge Follow up with your pollution control chemist within two- three days after discharge. Referrals: Aftab Horn MD [Staff Physician] - Disposition: TRANSFER ACUTE CARE/OTHER HOSP - Home Medications Comprehensive Discharge Medication List: Ambulatory Orders Enoxaparin [Lovenox -] 40 mg SQ DAILY 09/17/12 Warfarin Na [Coumadin] 4 mg PO HS 09/18/12 Moxifloxacin HCl [Vigamox] 1 drop OD TID #1 bottle 04/01/13 Warfarin Na [Coumadin] 5 mg PO HS 09/25/18 This patient is new to me today: Yes Date on this admission: 09/25/18 Emergency Visit: Yes ED Registration Date: 09/24/18 Care time: The patient presented to the Emergency Department on the above date and was hospitalized for further evaluation of their emergent condition. Critical Care patient: No - Discharge Referral Referred to [facility] Med P.C.: No
[2018-09-25 16:01] VITALS: BMI 30.4
--- NOTE | 2018-09-25 16:51 | PN ---
Progress Note (short form) - Note Progress Note: PULMONARY CONSULTATION DICTATED 09/25/18 IMP DYSPNEA PULMONARY HTN ? ETIOOLGY ?PRIMARY PH,?SECONDARY PH ? AUTOIMMUNE,? CHRONIC PE H/O DVT/PE UNPROVOKED ON COUMADIN SLE H/O ITP PLAN AC O2 NEEDED V/Q R HEART CATH SLEEP SCREEN DR DESOUZA Problem List - Problems (1) Lupus (systemic lupus erythematosus) Code(s): M32.9 - SYSTEMIC LUPUS ERYTHEMATOSUS, UNSPECIFIED (2) Pleuritic chest pain Code(s): R07.81 - PLEURODYNIA (3) Pulmonary hypertension Code(s): I27.20 - PULMONARY HYPERTENSION, UNSPECIFIED (4) Shortness of breath Code(s): R06.02 - SHORTNESS OF BREATH (5) H/O deep venous thrombosis Code(s): Z86.718 - PERSONAL HISTORY OF OTHER VENOUS THROMBOSIS AND EMBOLISM (6) History of pulmonary embolus (PE) Code(s): Z86.711 - PERSONAL HISTORY OF PULMONARY EMBOLISM
[2018-09-25] MEDS: WARFARIN NA 5 MG TABLET (UD) PO SCH (17:55)
--- NOTE | 2018-09-25 17:58 | CONS ---
DATE OF CONSULTATION: 09/25/2018 PULMONARY CONSULTATION REFERRING PHYSICIAN: Nikhil Davis MD HISTORY OF PRESENT ILLNESS: The patient is a 38-year-old female with a past medical history of pulmonary emboli initially diagnosed in 2006, unprovoked, with a DVT in 2011, unprovoked. She is maintained on anticoagulation with Coumadin with questionable compliance. She has ITP, SLE, being followed by Dr. Terry, maintained on prednisone and hydroxychloroquine. She was admitted to [facility] with a complaint of a two-week history of shortness of breath and sharp pleuritic chest pain. The patient states she typically has some shortness of breath with exertion. Over the past two weeks, she has developed marked dyspnea with minimal exertion and actually has some shortness of breath at rest. She also complained of some pleuritic chest pain. She presented to the emergency room. In the ER, she had a negative D-dimer. She was noted to have a subtherapeutic INR at 1.4. She underwent a CTA of the chest which was negative for pulmonary emboli but it did demonstrate pulmonary hypertension. She underwent an echocardiogram earlier today and was noted to have severe pulmonary hypertension with a right ventricular systolic pressure of mmHg with mildly reduced right ventricular systolic function. The patient denies any history of COPD or asthma. There is no history of occupational exposure to chemical fumes. There is no history of recent travel. PAST MEDICAL HISTORY: Again, this includes ITP, pulmonary emboli, DVT and SLE. REVIEW OF SYSTEMS: Positive for dyspnea on exertion, mild dyspnea at rest and chest pain. No fevers or chills. No weight loss or night sweats. No abdominal pain, no lower extremity edema. CURRENT MEDICATIONS: Lovenox, Coumadin and DuoNebs. PHYSICAL EXAMINATION: General: The patient is a well-developed, well-nourished female, awake and alert, currently in no acute distress. Vital Signs: She is afebrile. Pulse 88, O2 saturation is 98% on room air. HEENT: Head is normocephalic, atraumatic. Neck: Supple. Heart: Regular. S1, S2. Chest: Clear. Abdomen: Soft. Bowel sounds are positive. Extremities: No cyanosis or edema. LABORATORY: WBC is 2.6, hemoglobin 11.5, hematocrit 34.3, platelet count of 140,000. INR is 1.18. BUN 14, creatinine 0.7. Polys 34, lymphs 40, monos 16. A chest CTA showed no evidence of infiltrates or effusions. No PE. IMPRESSION: 1. Dyspnea, likely secondary to severe pulmonary hypertension. 2. Pulmonary hypertension; etiology to be determined. 3. History of deep vein thrombosis, pulmonary emboli, unprovoked; on Coumadin. 4. Systemic lupus erythematosus. 5. History of idiopathic thrombocytopenic purpura. PLAN: 1. Anticoagulation. 2. Supplemental O2 as needed. 3. Ventilation perfusion lung scan. 4. The patient will be scheduled for a right heart catheterization and further workup of pulmonary hypertension. DANIELLE DESOUZA M.D. [id number]
--- NOTE | 2018-09-25 19:12 | PN ---
Teaching Attending Note Name of Resident: Kirk Monteiro ATTENDING PHYSICIAN STATEMENT I saw and evaluated the patient. I reviewed the resident's note and discussed the case with the resident. I agree with the resident's findings and plan as documented. SUBJECTIVE: Still feels SOB, no further chest discomfort, no palpitations. Cough improving. No fever/chills OBJECTIVE: Aferile, Hemodynamically Stable Last Vital Signs Temp Pulse Resp BP Pulse Ox 98.2 F 88 16 138/84 98 09/25/18 15:45 09/25/18 15:45 09/25/18 14:56 09/25/18 15:45 09/25/18 15:45 HEENT - Atraumatic, Normocephalic. Heart - S1, S2, RRR, SM Lungs - clear to auscultation Abdomen - soft, non-tender. Bowel Sounds normal. Extremities - no edema, no calf tenderness Laboratory Results - last 24 hr 09/24/18 09/24/18 09/25/18 17:32 22:35 05:30 WBC 2.6 L RBC 3.93 Hgb 11.5 Hct 34.3 MCV 87.4 MCH 29.2 MCHC 33.4 RDW 14.5 Plt Count 140 MPV 10.6 Absolute Neuts (auto) 0.9 L Neutrophils % 34.3 L D Lymphocytes % 40.1 H D Monocytes % 16.0 H Eosinophils % 7.2 H D Basophils % 2.4 H Nucleated RBC % 0 PT with INR INR Sodium 140 Potassium 3.9 Chloride 108 H Carbon Dioxide 24 Anion Gap 8 BUN 11 Creatinine 0.8 Creat Clearance w eGFR 80.71 Random Glucose 86 Calcium 8.8 Phosphorus Magnesium Total Bilirubin 0.4 AST 24 ALT 26 Alkaline Phosphatase 94 Troponin I < 0.02 0.02 Total Protein 8.4 H Albumin 3.2 L 09/25/18 09/25/18 05:30 05:30 WBC RBC Hgb Hct MCV MCH MCHC RDW Plt Count MPV Absolute Neuts (auto) Neutrophils % Lymphocytes % Monocytes % Eosinophils % Basophils % Nucleated RBC % PT with INR 13.90 H INR 1.18 H Sodium 139 Potassium 3.7 Chloride 109 H Carbon Dioxide 24 Anion Gap 6 L BUN 14 Creatinine 0.7 Creat Clearance w eGFR 94.16 Random Glucose 84 Calcium 8.1 L Phosphorus 5.5 H Magnesium 1.9 Total Bilirubin AST ALT Alkaline Phosphatase Troponin I Total Protein Albumin Current Medications Generic Name Dose Route Start Last Admin Trade Name Alexandra PRN Reason Stop Dose Admin Albuterol/Ipratropium 1 amp 09/24/18 22:41 Duoneb - NEB Q4H PRN SHORTNESS OF BREATH Amoxicillin 500 mg 09/25/18 13:45 09/25/18 14:48 Amoxicillin - PO 500 mg BID DHRUV Administration Enoxaparin Sodium 75 mg 09/24/18 22:45 09/25/18 10:50 Lovenox - SQ 75 mg BID DHRUV Administration Warfarin Sodium 5 mg 09/25/18 18:00 09/25/18 17:55 Coumadin - PO 5 mg DAILY@1800 DHRUV Administration ASSESSMENT AND PLAN: 38 year old female with history of PE (on Coumadin, intermittently compliant), ITP, Lupus, presents with 2 week history of dyspnea and pleuritic chest pain, initially presented to PCP with productive cough and placed on Amoxicillin. Cough improved but had worsening SOB with associated pleuritic CP. EKG showed interval development of t-wave inversions in leads III, aVF, v1, v2, v3. Chest CTA was negative for PE but did show evidence of dilatation of PA trunk. 1. Pulmonary HTN RVSP 50-60 mmHG on Echo, etiology unclear. SpO2 98% RA, RR 16 Eval by Cardiology - for transfer for R heart cath and further work-up. Stable respiratory status. 2. URTI ? sinusitis - improving with outpatient Amoxicillin - Day 3 Will complete 7 day course. Chest imaging clear for pneumonia Afebrile, Hemodynamically Stable, Cough improving. 3. Hx of PE on Coumadin - intermittently compliant Subtherapeutic INR CTA negative for PE Resume Coumadin with Lovenox bridging. 4. Hx Lupus - does not appear to be on any medications 5. Leukopenia, etiology unclear. Developed since admission. No evidence of Sepsis. Will monitor. DVT Px - on Coumadin with Lovenox bridging.
[2018-09-26 08:42] LABS: BASO % 2.1 % (0-2.0); EOS % 9.9 % (0-4.5); HEMATOCRIT 35.7 % (32.4-45.2); HEMOGLOBIN 12.1 GM/dL (10.7-15.3); LYMPH % 38.9 % (8-40); MCH 29.8 pg (25.7-33.7); MCHC 33.9 g/dl (32.0-36.0); MEAN CELL VOLUME 87.8 fl (80-96); MEAN PLT VOLUME 10.6 fl (7.5-11.1); MONO % 14.8 % (3.8-10.2); NEUT % 34.3 % (42.8-82.8); PLATELET COUNT 141 K/MM3 (134-434); RBC 4.07 M/mm3 (3.60-5.2); RDW 14.7 % (11.6-15.6); WHITE BLOOD COUNT 2.6 K/mm3 (4.0-10.0)
[2018-09-26] MEDS ORDERED: PT OWN MED DRAWER 7, Y5N ONE ×2 (08:48→21:12)
[2018-09-26 09:04] LABS: ANION GAP 8 MMOL/L (8-16); BLOOD UREA NITROGEN 11 mg/dL (7-18); CALCIUM 8.4 mg/dL (8.5-10.1); CHLORIDE 111 mmol/L (98-107); CO2 24 mmol/L (21-32); CREATININE 0.6 mg/dL (0.55-1.3); GLUCOSE,RANDOM 91 mg/dL (74-106); POTASSIUM 3.9 mmol/L (3.5-5.1); SODIUM 143 mmol/L (136-145)
[2018-09-26 09:05] LABS: INR 1.39 (0.83-1.09); PROTHROMBIN TIME (PATIENT) 16.5 SEC (9.7-13.0)
[2018-09-26] MEDS: AMOXICILLIN 500 MG CAPSULE (FP) PO SCH ×2 (09:17→22:07)
[2018-09-26] MEDS: ENOXAPARIN NA (PORCINE) 80 MG/0.8 ML DISP.SYRIN SQ SCH ×2 (09:17→22:06)
[2018-09-26] MEDS: ALBUTEROL SO4 2.5/IPRATROPIUM 0.5 INH SOL 3 ML VIAL.NEB. NEB PRN ×2 (09:30→21:15)
--- NOTE | 2018-09-26 09:57 | PN ---
Progress Note, Physician Chief Complaint: Cardiolology coverage for Dr. Lala History of Present Illness: Episodic pleurisy and dyspnea on exertion, awaiting transfer for RHC with vasodilator trial. - Current Medication List Current Medications: Active Medications Albuterol/Ipratropium (Duoneb -) 1 amp NEB Q4H PRN PRN Reason: SHORTNESS OF BREATH Last Admin: 09/26/18 09:30 Dose: 1 amp Amoxicillin (Amoxicillin -) 500 mg PO BID [facility] Last Admin: 09/26/18 09:17 Dose: 500 mg Enoxaparin Sodium (Lovenox -) 75 mg SQ BID [facility] Last Admin: 09/26/18 09:17 Dose: 75 mg Warfarin Sodium (Coumadin -) 5 mg PO DAILY@1800 [facility] Last Admin: 09/25/18 17:55 Dose: 5 mg - Objective Vital Signs: Vital Signs Temperature 97.6 F 09/26/18 06:00 Pulse Rate 73 09/26/18 06:00 Respiratory Rate 18 09/26/18 06:12 Blood Pressure 121/56 L 09/26/18 06:00 O2 Sat by Pulse Oximetry (%) 97 09/26/18 06:12 Constitutional: Yes: No Distress, Calm Neck: Yes: Supple Cardiovascular: Yes: Regular Rate and Rhythm Respiratory: Yes: Regular, CTA Bilaterally Gastrointestinal: Yes: Normal Bowel Sounds, Soft Edema: No Labs: CBC, BMP 09/26/18 08:10 09/26/18 08:10 INR, PTT INR 1.39 (0.83-1.09) H 09/26/18 08:10 Assessment/Plan 09/25/2018 Echo: Normal LV size and fxn LVEF 55-60%, mildly dilated RV with mild decreased RV fxn, mild MR, TR RVSP 50-60 mmHg - Problems (1) Abnormal EKG Code(s): R94.31 - ABNORMAL ELECTROCARDIOGRAM [ECG] [EKG] (2) Pleuritic chest pain Code(s): R07.81 - PLEURODYNIA (3) Pulmonary hypertension Code(s): I27.20 - PULMONARY HYPERTENSION, UNSPECIFIED (4) Shortness of breath Code(s): R06.02 - SHORTNESS OF BREATH Assessment/Plan 38 year old female with a history of PE, ITP, Lupus noncompliant with Warfarin who presents for evaluation of shortness of breath and chest pain and new ekg changes. TNIs neg CTA neg PE ECHO showed dil RV reduced RV ef Plan; Bridge LMWH until INR therapeutic. Patient to be transferred to [facility] for w/u of pulmonary HTN/ RHC d/w PA at [facility] accepting dr. Damon
--- NOTE | 2018-09-26 10:43 | PN ---
Physical Exam: SUBJECTIVE: Patient seen and examined at bedside this morning. She denies acute complaints. OBJECTIVE: Vital Signs Period Temp Pulse Resp BP Sys/Fenton Pulse Ox Last 24 Hr 97.6 F-98.2 F 73-88 16-18 121-138/56-98 96-98 GENERAL: The patient is awake, alert, and fully oriented, in no acute distress. HEAD: Normocephalic, atraumatic. EYES: PERRL, extraocular movements intact, sclera anicteric, conjunctiva clear. ENT: Oropharynx clear, without erythema or exudates. Moist mucous membranes. NECK: Trachea midline, full range of motion. Supple without lymphadenopathy. LUNGS: Breath sounds equal, clear to auscultation bilaterally, no wheezes, no crackles. No accessory muscle use. HEART: Regular rate and rhythm, S1, S2 without murmur, rub or gallop. ABDOMEN: Soft, nondistended, nontender to light and deep palpation x4 quadrants , no rebound tenderness, no guarding. Normoactive bowel sounds x4 quadrants. no hepatosplenomegaly, no masses. EXTREMITIES: 2+ radial, dorsalis pedis pulses bilaterally. Warm, well-perfused. No lower extremity edema bilaterally. NEUROLOGICAL: Cranial nerves II through XII grossly intact. Normal speech. No gross focal deficits. PSYCH: Normal mood, normal affect upon my encounter. SKIN: Warm, dry. Laboratory Results - last 24 hr 09/26/18 09/26/18 09/26/18 08:10 08:10 08:10 WBC 2.6 L RBC 4.07 Hgb 12.1 Hct 35.7 MCV 87.8 MCH 29.8 MCHC 33.9 RDW 14.7 Plt Count 141 MPV 10.6 Absolute Neuts (auto) 0.9 L Neutrophils % 34.3 L Lymphocytes % 38.9 Monocytes % 14.8 H Eosinophils % 9.9 H Basophils % 2.1 H Nucleated RBC % 0 PT with INR 16.50 H INR 1.39 H Sodium 143 Potassium 3.9 Chloride 111 H Carbon Dioxide 24 Anion Gap 8 BUN 11 Creatinine 0.6 Creat Clearance w eGFR 112.49 Random Glucose 91 Calcium 8.4 L Active Medications Generic Name Dose Route Start Last Admin Trade Name Freq PRN Reason Stop Dose Admin Albuterol/Ipratropium 1 amp 09/24/18 22:41 09/26/18 09:30 Duoneb - NEB 1 amp Q4H PRN Administration SHORTNESS OF BREATH Amoxicillin 500 mg 09/25/18 13:45 09/26/18 09:17 Amoxicillin - PO 500 mg BID DHRUV Administration Enoxaparin Sodium 75 mg 09/24/18 22:45 09/26/18 09:17 Lovenox - SQ 75 mg BID DHRUV Administration Warfarin Sodium 5 mg 09/25/18 18:00 09/25/18 17:55 Coumadin - PO 5 mg DAILY@1800 DHRUV Administration ASSESSMENT/PLAN: Patient is a 38 year old female with history of pulmonary embolism, ITP, SLE presented with complaint of chest pain and associated shortness of breath. Chest pain -EKG on admission showed normal sinus rhythm at [address]-T wave abnormalities. -Troponin 0.02 x2 -Cardiac ECHO showed EF 55- 60%, with normal LV systolic function with mild LV relaxation. RV mildly dilated; with mildly reduced RV systolic function. RV systolic pressure elevated to 50- 60mmHg. -CTA was negative for pulmonary embolism; findings were suggestive of pulmonary hypertension -Cardiology recommendations appreciated. Patient is pending transfer to [facility] for further evaluation of pulmonary hypertension (right heart catheterization, and vasodilator trial), and higher level of care -Telemetry monitoring History of PE -History of noncompliance with Warfarin. -INR upon admission 1.1.4 -Coumadin 5mg PO daily -Lovenox 75mg subq BID bridging until INR is therapeutic. Goal between 2-3. -Follow INR History of Lupus -Patient follows Dr. Terry. Endorses that she has been non compliant with her Hydroxychloriquine, due to vision disturbances. -Patient will continue follow up with Dr. Terry as outpatient. Upper respiratory tract infection -Continue Amoxicillin 500mg PO BID (day #4) FEN -No IV fluids indicated -Follow CMP -Regular diet Prophylaxis -Patient is on Lovenox 75mg subq BID, Coumadin 5mg PO daily. Disposition -Continue care in Telemetry floor. Pending transfer to [facility] for further evaluation of pulmonary hypertension and higher level of care. Visit type - Emergency Visit Emergency Visit: Yes ED Registration Date: 09/24/18 Care time: The patient presented to the Emergency Department on the above date and was hospitalized for further evaluation of their emergent condition. - New Patient This patient is new to me today: No - Critical Care Critical Care patient: No - Discharge Referral Referred to [facility] Med P.C.: No
--- NOTE | 2018-09-26 11:44 | PN ---
Teaching Attending Note Name of Resident: Kirk Monteiro ATTENDING PHYSICIAN STATEMENT I saw and evaluated the patient. I reviewed the resident's note and discussed the case with the resident. I agree with the resident's findings and plan as documented. SUBJECTIVE: Still feels SOB on exertion with some pleuritic chest discomfort. No palpitations. Cough improving. No fever/chills OBJECTIVE: Aferile, Hemodynamically Stable Last Vital Signs Temp Pulse Resp BP Pulse Ox 97.6 F 73 18 121/56 L 97 09/26/18 06:00 09/26/18 06:00 09/26/18 06:12 09/26/18 06:00 09/26/18 06:12 Heart - S1, S2, RRR, SM Lungs - clear to auscultation Abdomen - soft, non-tender. Bowel Sounds normal. Extremities - no edema, no calf tenderness Laboratory Results - last 24 hr 09/26/18 09/26/18 09/26/18 08:10 08:10 08:10 WBC 2.6 L RBC 4.07 Hgb 12.1 Hct 35.7 MCV 87.8 MCH 29.8 MCHC 33.9 RDW 14.7 Plt Count 141 MPV 10.6 Absolute Neuts (auto) 0.9 L Neutrophils % 34.3 L Lymphocytes % 38.9 Monocytes % 14.8 H Eosinophils % 9.9 H Basophils % 2.1 H Nucleated RBC % 0 PT with INR 16.50 H INR 1.39 H Sodium 143 Potassium 3.9 Chloride 111 H Carbon Dioxide 24 Anion Gap 8 BUN 11 Creatinine 0.6 Creat Clearance w eGFR 112.49 Random Glucose 91 Calcium 8.4 L Current Medications Generic Name Dose Route Start Last Admin Trade Name Freq PRN Reason Stop Dose Admin Albuterol/Ipratropium 1 amp 09/24/18 22:41 09/26/18 09:30 Duoneb - NEB 1 amp Q4H PRN Administration SHORTNESS OF BREATH Amoxicillin 500 mg 09/25/18 13:45 09/26/18 09:17 Amoxicillin - PO 500 mg BID DHRUV Administration Enoxaparin Sodium 75 mg 09/24/18 22:45 09/26/18 09:17 Lovenox - SQ 75 mg BID DHRUV Administration Warfarin Sodium 5 mg 09/25/18 18:00 09/25/18 17:55 Coumadin - PO 5 mg DAILY@1800 DHRUV Administration ASSESSMENT AND PLAN: 38 year old female with history of PE (on Coumadin, intermittently compliant), ITP, Lupus, presents with 2 week history of dyspnea and pleuritic chest pain, initially presented to PCP with productive cough and placed on Amoxicillin. Cough improved but had worsening SOB with associated pleuritic CP. EKG showed interval development of t-wave inversions in leads III, aVF, v1, v2, v3. Chest CTA was negative for PE but did show evidence of dilatation of PA trunk. 1. Pulmonary HTN RVSP 50-60 mmHG on Echo, etiology unclear. SpO2 97% RA, RR 16 Eval by Cardiology - for transfer for R heart cath and vasodilator trial/ further work-up. Stable respiratory status. 2. URTI ? sinusitis - improving with Amoxicillin, started as out-patient - now Day 4 Will complete 7 day course. Chest imaging clear for pneumonia Afebrile, Hemodynamically Stable. 3. Hx of PE on Coumadin - intermittently compliant Subtherapeutic INR (1.39) CTA negative for PE Resumed on Coumadin with Lovenox bridging. 4. Hx Lupus - does not appear to be on any medications 5. Leukopenia, etiology unclear. Developed since admission. No evidence of Sepsis. Will monitor. If persistent, will need H/O consult. DVT Px - on Coumadin with Lovenox bridging.
[2018-09-26 12:22] LABS: ANISOCYTOSIS 2+; MACROCYTOSIS 1+; OVALOCYTE 1+; PLATELET ESTIMATE DECREASED
--- NOTE | 2018-09-26 14:17 | PN ---
Progress Note (short form) - Note Progress Note: Feels better but still with intermittent pleurisy and dyspnea on exertion. Has been accepted to [facility] for RHC with vasodilator trial. Intake & Output 09/23/18 09/24/18 09/25/18 09/26/18 23:59 23:59 23:59 23:59 Intake Total 100 340 Balance 100 340 Weight 165 lb 161 lb Last Vital Signs Temp Pulse Resp BP Pulse Ox 97.6 F 73 18 121/56 L 97 09/26/18 06:00 09/26/18 06:00 09/26/18 06:12 09/26/18 06:00 09/26/18 06:12 Active Medications Albuterol/Ipratropium (Duoneb -) 1 amp NEB Q4H PRN PRN Reason: SHORTNESS OF BREATH Last Admin: 09/26/18 09:30 Dose: 1 amp Amoxicillin (Amoxicillin -) 500 mg PO BID [facility] Last Admin: 09/26/18 09:17 Dose: 500 mg Enoxaparin Sodium (Lovenox -) 75 mg SQ BID [facility] Last Admin: 09/26/18 09:17 Dose: 75 mg Warfarin Sodium (Coumadin -) 5 mg PO DAILY@1800 [facility] Last Admin: 09/25/18 17:55 Dose: 5 mg Constitutional: Yes: No Distress Neck: Yes: Supple Cardiovascular: Yes: Regular Rate and Rhythm Respiratory: Yes: CTA Bilaterally Gastrointestinal: Yes: Normal Bowel Sounds, Soft Edema: No Labs: Laboratory Results - last 24 hr 09/26/18 09/26/18 09/26/18 08:10 08:10 08:10 WBC 2.6 L RBC 4.07 Hgb 12.1 Hct 35.7 MCV 87.8 MCH 29.8 MCHC 33.9 RDW 14.7 Plt Count 141 MPV 10.6 Absolute Neuts (auto) 0.9 L Neutrophils % 34.3 L Neutrophils % (Manual) 38.6 L Band Neutrophils % 1.0 Lymphocytes % 38.9 Lymphocytes % (Manual) 13.8 Monocytes % 14.8 H Monocytes % (Manual) 13 H Eosinophils % 9.9 H Eosinophils % (Manual) 7.9 H Basophils % 2.1 H Basophils % (Manual) 2.0 Myelocytes % (Man) 0 Promyelocytes % (Man) 0 Blast Cells % (Manual) 0 Nucleated RBC % 0 Metamyelocytes 0 Hypochromia 0 Platelet Estimate Decreased Platelet Comment Present Polychromasia 1+ Poikilocytosis 1+ Anisocytosis 2+ Microcytosis 1+ Macrocytosis 1+ Spherocytes 2+ Ovalocytes 1+ PT with INR 16.50 H INR 1.39 H Sodium 143 Potassium 3.9 Chloride 111 H Carbon Dioxide 24 Anion Gap 8 BUN 11 Creatinine 0.6 Creat Clearance w eGFR 112.49 Random Glucose 91 Calcium 8.4 L - Problems (1) Abnormal EKG Code(s): R94.31 - ABNORMAL ELECTROCARDIOGRAM [ECG] [EKG] (2) Pleuritic chest pain Code(s): R07.81 - PLEURODYNIA (3) Pulmonary hypertension Code(s): I27.20 - PULMONARY HYPERTENSION, UNSPECIFIED (4) Shortness of breath Code(s): R06.02 - SHORTNESS OF BREATH Assessment/Plan History of PE ITP Lupus Noncompliant with Warfarin ECHO: dilated RV with a reduced RV EF Plan; LMWH Patient to be transferred to [facility] for w/u of pulmonary HTN with a RHC O2 as needed Sleep screening as an outpatient Dr Lam
[2018-09-26] MEDS: WARFARIN NA 5 MG TABLET (UD) PO SCH (19:05)
[2018-09-26] MEDS ORDERED: ACETAMINOPHEN 325 MG TABLET (FP) ONE (21:11)
[2018-09-27 07:59] LABS: INR 1.59 (0.83-1.09); PROTHROMBIN TIME (PATIENT) 18.9 SEC (9.7-13.0)
[2018-09-27 08:12] LABS: HEMATOCRIT 35.2 % (32.4-45.2); HEMOGLOBIN 11.8 GM/dL (10.7-15.3); MCH 29.7 pg (25.7-33.7); MCHC 33.7 g/dl (32.0-36.0); MEAN CELL VOLUME 88.3 fl (80-96); MEAN PLT VOLUME 10.8 fl (7.5-11.1); PLATELET COUNT 137 K/MM3 (134-434); RBC 3.98 M/mm3 (3.60-5.2); RDW 14.8 % (11.6-15.6); WHITE BLOOD COUNT 2.9 K/mm3 (4.0-10.0)
[2018-09-27 08:35] LABS: ANION GAP 8 MMOL/L (8-16); BLOOD UREA NITROGEN 11 mg/dL (7-18); CALCIUM 7.9 mg/dL (8.5-10.1); CHLORIDE 111 mmol/L (98-107); CO2 22 mmol/L (21-32); CREATININE 0.6 mg/dL (0.55-1.3); GLUCOSE,RANDOM 92 mg/dL (74-106); POTASSIUM 3.8 mmol/L (3.5-5.1); SODIUM 142 mmol/L (136-145)
--- NOTE | 2018-09-27 08:43 | PN ---
Progress Note (short form) - Note Progress Note: c/o wheezing this Am that has improved with breathing treatment. dry cough. denies Cp, SOB, fever, chills, N/V/C/D Current Medications Generic Name Dose Route Start Last Admin Trade Name Freq PRN Reason Stop Dose Admin Albuterol/Ipratropium 1 amp 09/24/18 22:41 09/26/18 21:15 Duoneb - NEB 1 amp Q4H PRN Administration SHORTNESS OF BREATH Amoxicillin 500 mg 09/25/18 13:45 09/26/18 22:07 Amoxicillin - PO 500 mg BID DHRUV Administration Enoxaparin Sodium 75 mg 09/24/18 22:45 09/26/18 22:06 Lovenox - SQ 75 mg BID DHRUV Administration Warfarin Sodium 5 mg 09/25/18 18:00 09/26/18 19:05 Coumadin - PO 5 mg DAILY@1800 DHRUV Administration Last Vital Signs Temp Pulse Resp BP Pulse Ox 97.9 F 70 20 133/86 97 09/27/18 06:00 09/27/18 06:00 09/27/18 06:00 09/27/18 06:00 09/27/18 02:00 General NAD CV S1 s2 RRR no murmur/rub/gallop Lungs CTA B/L no wheezing/rales/rhonchi Abdomen soft NT/ND Extremities no pedal edema CBCD WBC 2.9 K/mm3 (4.0-10.0) L 09/27/18 06:30 RBC 3.98 M/mm3 (3.60-5.2) 09/27/18 06:30 Hgb 11.8 GM/dL (10.7-15.3) 09/27/18 06:30 Hct 35.2 % (32.4-45.2) 09/27/18 06:30 MCV 88.3 fl (80-96) 09/27/18 06:30 MCHC 33.7 g/dl (32.0-36.0) 09/27/18 06:30 RDW 14.8 % (11.6-15.6) 09/27/18 06:30 Plt Count 137 K/MM3 (134-434) 09/27/18 06:30 MPV 10.8 fl (7.5-11.1) 09/27/18 06:30 CMP Sodium 142 mmol/L (136-145) 09/27/18 06:30 Potassium 3.8 mmol/L (3.5-5.1) 09/27/18 06:30 Chloride 111 mmol/L (98-107) H 09/27/18 06:30 Carbon Dioxide 22 mmol/L (21-32) 09/27/18 06:30 Anion Gap 8 MMOL/L (8-16) 09/27/18 06:30 BUN 11 mg/dL (7-18) 09/27/18 06:30 Creatinine 0.6 mg/dL (0.55-1.3) 09/27/18 06:30 Creat Clearance w eGFR 112.49 (>60) 09/27/18 06:30 Calcium 7.9 mg/dL (8.5-10.1) L 09/27/18 06:30 Total Bilirubin 0.4 mg/dL (0.2-1) 09/24/18 17:32 AST 24 U/L (15-37) 09/24/18 17:32 ALT 26 U/L (13-61) 09/24/18 17:32 Alkaline Phosphatase 94 U/L (45-117) 09/24/18 17:32 Total Protein 8.4 g/dl (6.4-8.2) H 09/24/18 17:32 Albumin 3.2 g/dl (3.4-5.0) L 09/24/18 17:32 ASSESSMENT AND PLAN: 38 year old female with history of PE (on Coumadin, intermittently compliant), ITP, Lupus, presents with 2 week history of dyspnea and pleuritic chest pain, initially presented to PCP with productive cough and placed on Amoxicillin. Cough improved but had worsening SOB with associated pleuritic CP. 1. Pulmonary HTN- elevated RVSP pressures. plan for transfer to [place] for R heart cath and further workup 2. Subtherapeutic INR- remains low. states normally well controlled on coumadin 5mg. will cont bridge with lovenox at this time. daily INR 3. Sinusitis- improving. afebrile. on amox day 5 of 7 4. Leukopenia- unclear etiology. should have it checked once infection is treated and hematology outpatient if persists 5. SLE- not on medications 6. ITP- platelet count is good. no indication for transfusion 7. DVT Px - on Coumadin with Lovenox bridging. 8. plan for transfer tomorrow Visit type - Emergency Visit Emergency Visit: Yes ED Registration Date: 09/27/18 Care time: The patient presented to the Emergency Department on the above date and was hospitalized for further evaluation of their emergent condition. - New Patient This patient is new to me today: Yes Date on this admission: 09/27/18 - Critical Care Critical Care patient: No - Discharge Referral Referred to [facility] Med P.C.: No
[2018-09-27] MEDS ORDERED: PT OWN MED DRAWER 7, Y5N ONE ×2 (09:07→20:42)
[2018-09-27] MEDS: ENOXAPARIN NA (PORCINE) 80 MG/0.8 ML DISP.SYRIN SQ SCH ×2 (09:10→21:17)
[2018-09-27] MEDS: AMOXICILLIN 500 MG CAPSULE (FP) PO SCH ×2 (09:11→21:17)
[2018-09-27] MEDS: ALBUTEROL SO4 2.5/IPRATROPIUM 0.5 INH SOL 3 ML VIAL.NEB. NEB PRN ×2 (09:30→18:56)
--- NOTE | 2018-09-27 11:27 | PN ---
Progress Note, Physician Chief Complaint: Cardiolology coverage for Dr. Lala History of Present Illness: Pleurisy resolved, but dyspnea on exertion persists. Received BD treatment with improvement in cough and dyspnea, awaiting transfer for RHC with vasodilator trial. - Current Medication List Current Medications: Active Medications Albuterol/Ipratropium (Duoneb -) 1 amp NEB Q4H PRN PRN Reason: SHORTNESS OF BREATH Last Admin: 09/26/18 21:15 Dose: 1 amp Amoxicillin (Amoxicillin -) 500 mg PO BID [facility] Last Admin: 09/27/18 09:11 Dose: 500 mg Enoxaparin Sodium (Lovenox -) 75 mg SQ BID [facility] Last Admin: 09/27/18 09:10 Dose: 75 mg Warfarin Sodium (Coumadin -) 5 mg PO DAILY@1800 [facility] Last Admin: 09/26/18 19:05 Dose: 5 mg - Objective Vital Signs: Vital Signs Temperature 97.9 F 09/27/18 06:00 Pulse Rate 70 09/27/18 06:00 Respiratory Rate 20 09/27/18 06:00 Blood Pressure 133/86 09/27/18 06:00 O2 Sat by Pulse Oximetry (%) 97 09/27/18 02:00 Constitutional: Yes: No Distress, Calm, Thin Neck: Yes: Supple Cardiovascular: Yes: Regular Rate and Rhythm Respiratory: Yes: Regular, CTA Bilaterally Gastrointestinal: Yes: Soft, Hypoactive Bowel Sounds Edema: No Labs: CBC, BMP 09/27/18 06:30 09/27/18 06:30 INR, PTT INR 1.59 (0.83-1.09) H 09/27/18 06:30 - ....Imaging EKG: Report Reviewed (Tele: NSR) Assessment/Plan 09/25/2018 Echo: Normal LV size and fxn LVEF 55-60%, mildly dilated RV with mild decreased RV fxn, mild MR, TR RVSP 50-60 mmHg - Problems (1) Abnormal EKG Code(s): R94.31 - ABNORMAL ELECTROCARDIOGRAM [ECG] [EKG] (2) Pleuritic chest pain Code(s): R07.81 - PLEURODYNIA (3) Pulmonary hypertension Code(s): I27.20 - PULMONARY HYPERTENSION, UNSPECIFIED (4) Shortness of breath Code(s): R06.02 - SHORTNESS OF BREATH Assessment/Plan 38 year old female with a history of PE, ITP, Lupus noncompliant with Warfarin who presents for evaluation of shortness of breath and chest pain and new ekg changes. TNIs neg CTA neg PE ECHO showed dil RV reduced RV ef Plan; Bridge LMWH until INR therapeutic. Patient to be transferred to [facility] for w/u of pulmonary HTN/ RHC d/w PA at [facility] accepting dr. Damon
--- NOTE | 2018-09-27 12:30 | PN ---
Progress Note, Physician History of Present Illness: pulmonary alert,comfortable at rest,+ blevins,-cp,-cough. sleep screen AHI 23.8 c/o modrerate -severe robert - Current Medication List Current Medications: Active Medications Albuterol/Ipratropium (Duoneb -) 1 amp NEB Q4H PRN PRN Reason: SHORTNESS OF BREATH Last Admin: 09/27/18 09:30 Dose: 1 amp Amoxicillin (Amoxicillin -) 500 mg PO BID [facility] Last Admin: 09/27/18 09:11 Dose: 500 mg Enoxaparin Sodium (Lovenox -) 75 mg SQ BID [facility] Last Admin: 09/27/18 09:10 Dose: 75 mg Warfarin Sodium (Coumadin -) 5 mg PO DAILY@1800 [facility] Last Admin: 09/26/18 19:05 Dose: 5 mg - Objective Vital Signs: Vital Signs Temperature 97.9 F 09/27/18 06:00 Pulse Rate 70 09/27/18 06:00 Respiratory Rate 20 09/27/18 06:00 Blood Pressure 133/86 09/27/18 06:00 O2 Sat by Pulse Oximetry (%) 97 09/27/18 02:00 Constitutional: Yes: Well Nourished, Calm Eyes: Yes: WNL HENT: Yes: WNL Neck: Yes: WNL Cardiovascular: Yes: Regular Rate and Rhythm, S1, S2 Respiratory: Yes: CTA Bilaterally Gastrointestinal: Yes: Normal Bowel Sounds, Soft Extremities: Yes: WNL Edema: No Labs: CBC, BMP 09/27/18 06:30 09/27/18 06:30 INR, PTT INR 1.59 (0.83-1.09) H 09/27/18 06:30 Problem List - Problems (1) Lupus (systemic lupus erythematosus) Code(s): M32.9 - SYSTEMIC LUPUS ERYTHEMATOSUS, UNSPECIFIED (2) Pleuritic chest pain Code(s): R07.81 - PLEURODYNIA (3) Pulmonary hypertension Code(s): I27.20 - PULMONARY HYPERTENSION, UNSPECIFIED (4) Shortness of breath Code(s): R06.02 - SHORTNESS OF BREATH (5) H/O deep venous thrombosis Code(s): Z86.718 - PERSONAL HISTORY OF OTHER VENOUS THROMBOSIS AND EMBOLISM (6) History of pulmonary embolus (PE) Code(s): Z86.711 - PERSONAL HISTORY OF PULMONARY EMBOLISM Assessment/Plan IMP DYSPNEA PULMONARY HTN ? ETIOOLGY ?PRIMARY PH,?SECONDARY PH ? AUTOIMMUNE,? CHRONIC PE H/O DVT/PE UNPROVOKED ON COUMADIN SLE H/O ITP + OSAS PLAN AC O2 NEEDED V/Q R HEART CATH TO BE TRANSFERRED TO [facility] FOR W/U PULMONARY HTN FORMAL SLEEP STUDIES OUTPATIENT DR DESOUZA Problem List - Problems (1) Lupus (systemic lupus erythematosus) Code(s): M32.9 - SYSTEMIC LUPUS ERYTHEMATOSUS, UNSPECIFIED (2) Pleuritic chest pain Code(s): R07.81 - PLEURODYNIA (3) Pulmonary hypertension Code(s): I27.20 - PULMONARY HYPERTENSION, UNSPECIFIED (4) Shortness of breath Code(s): R06.02 - SHORTNESS OF BREATH (5) H/O deep venous thrombosis Code(s): Z86.718 - PERSONAL HISTORY OF OTHER VENOUS THROMBOSIS AND EMBOLISM (6) History of pulmonary embolus (PE) Code(s): Z86.711 - PERSONAL HISTORY OF PULMONARY EMBOLISM
[2018-09-27] MEDS: WARFARIN NA 5 MG TABLET (UD) PO SCH (18:55)
[2018-09-28] MEDS: ALBUTEROL SO4 2.5/IPRATROPIUM 0.5 INH SOL 3 ML VIAL.NEB. NEB PRN (06:31)
[2018-09-28 07:04] LABS: INR 1.76 (0.83-1.09); PROTHROMBIN TIME (PATIENT) 20.9 SEC (9.7-13.0)
[2018-09-28] MEDS: ENOXAPARIN NA (PORCINE) 80 MG/0.8 ML DISP.SYRIN SQ SCH (09:09)
[2018-09-28] MEDS ORDERED: PT OWN MED DRAWER 7, Y5N ONE (09:17)
[2018-09-28] MEDS: AMOXICILLIN 500 MG CAPSULE (FP) PO SCH (09:19)
[2018-09-28 10:15] VITALS: BP 142/86; PULSE 80; TEMP 98
--- NOTE | 2018-09-28 11:10 | DS ---
Physical Exam: SUBJECTIVE: Patient seen and examined at bedside this morning. No acute overnight telemetry events. Patient denies subjective fevers, chills, shortness of breath, chest pain, palpitations, abdominal pain, nausea, vomiting, diarrhea. OBJECTIVE: Vital Signs Period Temp Pulse Resp BP Sys/Fenton Pulse Ox Last 24 Hr 97.8 F-98.2 F 78-98 18-20 130-144/84-97 97-97 PHYSICAL EXAM GENERAL: The patient is awake, alert, and fully oriented, in no acute distress. HEAD: Normocephalic, atraumatic. EYES: PERRL, extraocular movements intact, sclera anicteric, conjunctiva clear. ENT: Oropharynx clear, without erythema or exudates. Moist mucous membranes. NECK: Trachea midline, full range of motion. Supple without lymphadenopathy. LUNGS: Breath sounds equal, clear to auscultation bilaterally, no wheezes, no crackles. No accessory muscle use. HEART: Regular rate and rhythm, S1, S2 without murmur, rub or gallop. ABDOMEN: Soft, nondistended, nontender to light and deep palpation x4 quadrants , no rebound tenderness, no guarding. Normoactive bowel sounds x4 quadrants. no hepatosplenomegaly, no masses. EXTREMITIES: 2+ radial, dorsalis pedis pulses bilaterally. Warm, well-perfused. No lower extremity edema bilaterally. NEUROLOGICAL: Cranial nerves II through XII grossly intact. Normal speech. No gross focal deficits. PSYCH: Normal mood, normal affect upon my encounter. SKIN: Warm, dry. LABS Laboratory Results - last 24 hr 09/28/18 05:30 PT with INR 20.90 H INR 1.76 H HOSPITAL COURSE: Date of Admission:09/27/18 Date of Discharge: 09/28/18 Patient is a 38 year old female with history of pulmonary embolism, ITP, SLE presented with complaint of chest pain and associated shortness of breath. EKG on admission showed normal sinus rhythm at [address]-T wave abnormalities. Troponin 0.02 x2. Cardiac ECHO showed EF 55- 60%, with normal LV systolic function with mild LV relaxation. RV mildly dilated; with mildly reduced RV systolic function. RV systolic pressure elevated to 50- 60mmHg. CTA was negative for pulmonary embolism; findings were suggestive of pulmonary hypertension. Patient endorsed occasional noncompliance with her Warfarin dose. INR upon admission was 1.14. Patient was initiated on Lovenox bridging, while continuing her Coumadin. Patient was evaluated by cardiology who discussed transfer to [facility]. There was delay in transfer while waiting for available bed at accepting facility. Patient transferred to [facility] for further evaluation of pulmonary hypertension (right heart catheterization, trial of vasodilators) and higher level of care. Minutes to complete discharge: 35 Discharge Summary Reason For Visit: SHORTNESS OF BREATH,PLEURODYNIA, Condition: Stable - Instructions Diet, Activity, Other Instructions: You were admitted to the hospital with chest pain. Your echocardiogram was noted to have elevated pressure within the blood vessels of the lungs (pulmonary hypertension). You were evaluated by the lane attendant; who is transferring you to [facility] for frther workup and higher level of care. Continue taking your home medications as directed. Further, follow the medication and follow-up recommendations of the physicians at [facility]. Follow up with your primary care physician within two- three days after discharge Follow up with your lane attendant within two- three days after discharge. Referrals: Aftab Horn MD [Staff Physician] - Disposition: TRANSFER ACUTE CARE/OTHER HOSP - Home Medications Comprehensive Discharge Medication List: Ambulatory Orders Warfarin Na [Coumadin] 5 mg PO HS 09/25/18 This patient is new to me today: No Emergency Visit: Yes ED Registration Date: 09/27/18 Care time: The patient presented to the Emergency Department on the above date and was hospitalized for further evaluation of their emergent condition. Critical Care patient: No - Discharge Referral Referred to [facility] Med P.C.: No
--- NOTE | 2018-09-28 11:44 | PN ---
Teaching Attending Note Name of Resident: Kirk Monteiro ATTENDING PHYSICIAN STATEMENT I saw and evaluated the patient. I reviewed the resident's note and discussed the case with the resident. I agree with the resident's findings and plan as documented. SUBJECTIVE:asymptomatic. denies CP, SOB, fever, chills, N/V/C/D OBJECTIVE: Last Vital Signs Temp Pulse Resp BP Pulse Ox 98 F 80 18 142/86 97 09/28/18 09:00 09/28/18 09:00 09/28/18 09:00 09/28/18 09:00 09/28/18 09:00 General NAD ASSESSMENT AND PLAN: 38 year old female with history of PE (on Coumadin, intermittently compliant), ITP, Lupus, presents with 2 week history of dyspnea and pleuritic chest pain, initially presented to PCP with productive cough and placed on Amoxicillin. Cough improved but had worsening SOB with associated pleuritic CP. 1. Pulmonary HTN- elevated RVSP pressures. plan for transfer to [place] for R heart cath and further workup 2. Subtherapeutic INR- remains low. states normally well controlled on coumadin 5mg. will cont bridge with lovenox at this time. daily INR 3. Sinusitis- improving. afebrile. on amox day 6 of 7 4. Leukopenia- unclear etiology. should have it checked once infection is treated and hematology outpatient if persists 5. SLE- not on medications 6. ITP- platelet count is good. no indication for transfusion 7. DVT Px - on Coumadin with Lovenox bridging. 8. transfer to [place] today for R heart cath
== END 2018-09-28 10:23 | disposition short-term general hospital (02) | DRG 315 ==
LOC: JER 17:15 → JERBED 22:18 → J4W 09-25 15:23 → OBSVTOIN 09-27 08:44
PROVIDERS: ADMIT Internal Medicine; ATTEND Internal Medicine
DX: I27.20 Pulmonary hypertension, unspecified (principal); D69.3 Immune thrombocytopenic purpura; E46 Unspecified protein-calorie malnutrition; M32.9 Systemic lupus erythematosus, unspecified; R94.31 Abnormal electrocardiogram [ECG] [EKG]; E66.9 Obesity, unspecified; Z68.30 Body mass index [BMI] 30.0-30.9, adult; E88.09 Other disorders of plasma-protein metabolism, not elsewhere classified; R07.81 Pleurodynia; D72.819 Decreased white blood cell count, unspecified; J06.9 Acute upper respiratory infection, unspecified; J32.9 Chronic sinusitis, unspecified; G47.33 Obstructive sleep apnea (adult) (pediatric); Z91.19 Patient's noncompliance with other medical treatment and regimen; Z86.718 Personal history of other venous thrombosis and embolism; Z79.01 Long term (current) use of anticoagulants; Z86.711 Personal history of pulmonary embolism
CPT/HCPCS: 36415; 71046-TC-FY; 71275-TC; 80048; 80053; 81003; 83735; 84100; 84484; 84703; 85025; 85027; 85379; 85610; 85730; 93005; 93010; 93306-TC; 94640; 99283-25; G0378; J7030

== ENCOUNTER 2021-03-25 03:02 | Emergency (ER) | payer OTHER ==
[2021-03-25 03:19] VITALS: BP 144/83; BMI 33.6
[2021-03-25 04:08] LABS: HEMATOCRIT 31.3 % (32.4-45.2); HEMOGLOBIN 10.5 GM/dL (10.7-15.3); MCH 25.4 pg (25.7-33.7); MCHC 33.5 g/dl (32.0-36.0); MEAN CELL VOLUME 75.8 fl (80-96); MEAN PLT VOLUME 9.3 fl (7.5-11.1); PLATELET COUNT 124 10^3/uL (134-434); RBC 4.13 M/mm3 (3.60-5.2); RDW 16.4 % (11.6-15.6); WHITE BLOOD COUNT 3.1 K/mm3 (4.0-10.0)
[2021-03-25 04:21] LABS: INR 1.42 (0.83-1.09)
[2021-03-25 04:22] LABS: CHLORIDE 110 mmol/L (98-107); SODIUM 140 mmol/L (136-145)
[2021-03-25 04:23] LABS: ACTIVATED PTT 29.8 SECONDS (25.2-36.5)
[2021-03-25 04:24] LABS: CALCIUM 7.8 mg/dL (8.5-10.1)
[2021-03-25 04:25] LABS: ALBUMIN 3.2 g/dl (3.4-5.0); ANION GAP 6 MMOL/L (8-16); BLOOD UREA NITROGEN 11.6 mg/dL (7-18); CO2 24 mmol/L (21-32); GLUCOSE,RANDOM 100 mg/dL (74-106)
[2021-03-25 04:28] LABS: BASO % 0.8 % (0-2.0); CREATININE 0.8 mg/dL (0.55-1.3); EOS % 2.7 % (0-4.5); LYMPH % 37.2 % (8-40); MONO % 13.8 % (3.8-10.2); NEUT % 45.5 % (42.8-82.8); SGOT/AST 22 U/L (15-37); SGPT/ALT 18 U/L (13-61)
[2021-03-25 04:29] LABS: BILIRUBIN,TOTAL 0.2 mg/dL (0.2-1); TOT PROT 7.9 g/dl (6.4-8.2)
[2021-03-25 04:31] LABS: ALK PHOS 72 U/L (45-117)
[2021-03-25 06:26] VITALS: PULSE 92
== END 2021-03-25 06:53 | disposition home or self-care (01) ==
LOC: JER 03:02
DX: R05.9 Cough, unspecified (principal)
CPT/HCPCS: 36415; 71275-TC; 80053; 82550; 84484; 84702; 85025; 85610; 85730; 93005; 93010; 99285-25; C9803; Q9967; U0003; U0005

== ENCOUNTER 2022-12-21 12:08 | Day surgery (SDC) | payer OTHER ==
[2022-12-21] MEDS ORDERED: FERRIC CARBOXYMALTOSE IVPB SCH (13:00)
[2022-12-21] MEDS ORDERED: SODIUM CHLORIDE 0.45% IVPB SCH (13:00)
[2022-12-21 13:08] VITALS: TEMP 98.7
[2022-12-21 14:54] VITALS: BP 106/58; PULSE 84; RESP 18
== END 2022-12-21 14:55 | disposition home or self-care (01) ==
LOC: FM/S 12:08 → FINFUSION 12:08
PROVIDERS: ATTEND Family Medicine
PROC: 3E033GC Introduction of Other Therapeutic Substance into Peripheral Vein, Percutaneous Approach (ICD-10-PCS; principal; 2022-12-21)
DX: D50.9 Iron deficiency anemia, unspecified (principal)
CPT/HCPCS: 96374; J1439

== ENCOUNTER 2022-12-28 12:23 | Day surgery (SDC) | payer OTHER ==
[2022-12-28] MEDS ORDERED: FERRIC CARBOXYMALTOSE 750 MG in SODIUM CHLORIDE 250 ML IVPB SCH (12:45)
[2022-12-28 14:17] VITALS: BP 118/80; PULSE 70; RESP 18; TEMP 98.3
== END 2022-12-28 14:17 | disposition home or self-care (01) ==
LOC: FINFUSION 12:23 → FM/S 12:23 → FINFUSION 14:17
PROVIDERS: ATTEND Family Medicine
PROC: 3E033GC Introduction of Other Therapeutic Substance into Peripheral Vein, Percutaneous Approach (ICD-10-PCS; principal; 2022-12-28)
DX: D50.9 Iron deficiency anemia, unspecified (principal)
CPT/HCPCS: 96365; J1439